=== PATIENT | female | born 1940 | race Caucasian/White ===

== ENCOUNTER → 2017-03-10 | Outpatient (CLI) | payer OTHER ==
[~2017-03-10] MED LIST: ADULT LOW DOSE81 MG PO; BACTRIM DS TAB1 EACH PO; CENTRUM SILVER1 EAC4 PO; CIPROFLOXACIN500 M1 PO; CIPROFLOXACIN500 M3 PO; CITRACAL + D C1 EACH PO; FLAGYL500 MG PO; HYDROCODON-ACE1 EAC7 PO; NORCO 5-325 TA1 EACH PO; OMEPRAZOLE20 M2 PO; ZOFRAN 4 MG ORAL4 MG PO; ZOFRAN ODT4 MG PO
== END ==
LOC: NUC 10:50
DX: N91.2 Amenorrhea, unspecified (principal); Z78.0 Asymptomatic menopausal state

== ENCOUNTER → 2019-08-13 | Outpatient (CLI) | payer OTHER | LOC: CAT 13:09 | PROVIDERS: ATTEND Family Medicine | DX: Z13.6 Encounter for screening for cardiovascular disorders (principal); I25.10 Atherosclerotic heart disease of native coronary artery without angina pectoris; E78.00 Pure hypercholesterolemia, unspecified ==

== ENCOUNTER → 2020-11-21 | Outpatient (CLI) | payer OTHER | LOC: NUC 10:05 | PROVIDERS: ATTEND Family Medicine | DX: Z12.31 Encounter for screening mammogram for malignant neoplasm of breast (principal); M85.88 Other specified disorders of bone density and structure, other site ==